=== PATIENT | male | born 1955 | race Caucasian/White ===

== ENCOUNTER 2025-05-08 17:05 | Emergency (ER) | payer MEDICARE, OTHER, SELFPAY ==
[2025-05-08 17:15] VITALS: BP 171/83
[2025-05-08 17:48] LABS: Hematocrit 40.2 % (39.0-52.0); Hemoglobin 13.7 g/dL (13.0-18.0); Mean Corp Hgb Conc. 34.1 g/dL (33.0-37.0); Mean Corpuscular Volume 84.6 fL (80.0-94.0); Nucleated Red Blood Cells % 0 % (-); Platelet Count 157 10^3/uL (130-400); Red Cell Dist. Width 13.2 % (11.5-14.5)
[2025-05-08 18:10] LABS: Troponin I < 0.012 ng/ml
[2025-05-08 18:13] LABS: ALT (SGPT) 31 U/L (0-50); AST (SGOT) 31 U/L (17-59); Albumin 4.3 g/dl (3.5-5.0); Alkaline Phosphatase 86 U/L (38-126); Blood Urea Nitrogen 24 mg/dl (9-20); Calcium 9.0 mg/dl (8.4-10.2); Carbon Dioxide 28 mmol/L (22-30); Chloride 105 mmol/L (98-107); Glucose 88 mg/dl (70-99); Potassium 4.3 mmol/L (3.5-5.1); Sodium 139 mmol/L (135-145); Total Protein 6.6 g/dl (6.3-8.2); eGFR > 60.00
[2025-05-08 21:41] VITALS: BMI 26.4
--- NOTE | 2025-05-08 21:52 | ED.GENMED ---
History of Present Illness
<Desiree Pennington MD - Last Filed: 05/08/25 22:42>
General
Chief Complaint: Breathing Problem
Source: patient
Time Seen by Provider: 05/08/25 21:41
History of Present Illness
History of Present Illness:
This patient is a 69-year-old male who presents emergency department with complaints of dyspnea. He says that in the past he will get 'slightly winded' with exercise. He has had stress test done in response to this all of which have been
unremarkable. However, he notes recently that he has been developing very short-lived episodes of dyspnea now at rest, lasting seconds at a time and then spontaneously resolving. Patient states that he did a workout on Friday and felt fine. Of
note, patient returned from a trip to [facility] approximately 1 week ago. He denies headache, dizziness, leg swelling, nausea, vomit, fever, chills, cough, sore throat, rhinorrhea, chest pain or pressure, back pain, neck pain, jaw pain, or other
plaints.
Past History
<Desiree Pennington MD - Last Filed: 05/08/25 22:42>
Past History
ED Past Medical History: CAD, HTN, Hypercholesterolemia and Other (DVT)
ED Past Surgical History: Cardiac (2 cardiac stents), Orthopedic (Right hip replacement) and Other (Dental surgeries)
Social History
Tobacco: Non-smoker
Alcohol: Occasional
Drug: None
Personal:
Living: with family
Phy Exam
<Desiree Pennington MD - Last Filed: 05/08/25 22:42>
Physical Exam
Physical Exam:
GENERAL: Alert , in no apparent distress
EYE: pupils equal and reactive
NECK: Supple, no significant adenopathy.
ENT: o/p clr, mmm.
CARDIAC: Regular rate and rhythm .
LUNGS: Clear breath sounds bilaterally, no acute respiratory distress, no wheezes/rales/rhonchi
ABDOMEN: Soft, without focal tenderness, no r/g, no cvat
NEUROLOGICAL: Alert and oriented, no focal neuro deficits
SKIN: Warm and dry, skin intact.
MUSCULOSKELETAL: No edema, well perfused.
PSYCH: Normal and appropriate interaction.
Scores
<Cherry Buck DO - Last Filed: 05/09/25 01:17>
Heart Failure Risk
Heart Failure Risk Score: Yes
History of Stroke or TIA: No
History of intubation for respiratory distress: No
Heart rate on ED arrival >/= 110: No
SaO2 <90% on arrival on room air: No
HR >/=110 during 3min walk test (or too ill to perform test): No
ECG has acute ischemic changes: No
Urea >/=12mmol/L (BUN 33.6mg/dL): No
Serum CO2>/=35mmol/L: No
Troponin I or T elevated to [place] Level (0.4mg/dL): No
NT-proBNP >/=5,000ng/L (5,000pg/ml): No
HF Risk Score: 0
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
Course
<Desiree Pennington MD - Last Filed: 05/08/25 22:42>
Orders/Labs/Results
Orders:
Orders
05/08/25 17:19
Electrocardiogram (*1) Urgent
Reason for Study: Shortness of Breath
05/08/25 17:20
EKG- Treatment ONCE
05/08/25 17:42
Complete Blood Count/With Diff Urgent
Comprehensive Metabolic Panel Urgent
Pro-BNP [NT-proBNP] Urgent
Troponin I Urgent
05/08/25 21:51
CT Chest PE Study Urgent
Comment:
Reason For Exam: sob, hx dvt
05/08/25 21:58
Troponin I Urgent
Abnormal Lab Results
05/08/25
17:42
WBC 4.7 L 10^3/uL
(4.8-10.8)
Absolute Lymphs (auto) 1.1 L 10^3/uL
(1.2-3.4)
Monocytes % 12.2 H %
(1.7-9.3)
BUN 24 H mg/dl
(9-20)
Total Bilirubin 1.4 H mg/dl
(0.2-1.3)
05/08/25 17:42
05/08/25 17:42
Vital Signs
Initial and Last Documented VS:
Initial Vital Signs
Temp Pulse Resp BP Pulse Ox
97.6 F 48 20 171/83 100
05/08/25 17:15 05/08/25 17:15 05/08/25 17:15 05/08/25 17:15 05/08/25 17:15
Last Documented Vital Signs
Temp Pulse Resp BP Pulse Ox
97.6 F 47 15 136/78 96
05/08/25 17:15 05/09/25 00:30 05/09/25 00:30 05/09/25 00:00 05/09/25 00:30
<Cherry Buck, DO - Last Filed: 05/09/25 01:17>
Orders/Labs/Results
Orders:
Orders
05/08/25 17:19
Electrocardiogram (*1) Urgent
Reason for Study: Shortness of Breath
05/08/25 17:20
EKG- Treatment ONCE
05/08/25 17:42
Complete Blood Count/With Diff Urgent
Comprehensive Metabolic Panel Urgent
Pro-BNP [NT-proBNP] Urgent
Troponin I Urgent
05/08/25 21:51
CT Chest PE Study Urgent
Comment:
Reason For Exam: sob, hx dvt
05/08/25 21:58
Troponin I Urgent
Abnormal Lab Results
05/08/25
17:42
WBC 4.7 L 10^3/uL
(4.8-10.8)
Absolute Lymphs (auto) 1.1 L 10^3/uL
(1.2-3.4)
Monocytes % 12.2 H %
(1.7-9.3)
BUN 24 H mg/dl
(9-20)
Total Bilirubin 1.4 H mg/dl
(0.2-1.3)
05/08/25 17:42
05/08/25 17:42
Vital Signs
Initial and Last Documented VS:
Initial Vital Signs
Temp Pulse Resp BP Pulse Ox
97.6 F 48 20 171/83 100
05/08/25 17:15 05/08/25 17:15 05/08/25 17:15 05/08/25 17:15 05/08/25 17:15
Last Documented Vital Signs
Temp Pulse Resp BP Pulse Ox
97.6 F 47 15 136/78 96
05/08/25 17:15 05/09/25 00:30 05/09/25 00:30 05/09/25 00:00 05/09/25 00:30
<Desiree Pennington MD - Last Filed: 05/08/25 22:42>
*Pulse Oximetry
SaO2: 100
Oxygen Mode of Delivery: Room air
<Cherry Buck DO - Last Filed: 05/09/25 01:17>
*Radiology
Radiology exam reviewed: radiology read reviewed
*Pulse Oximetry
Patient hypoxic: no
*Critical Care Note
Total Time (30-74mins, 75-104mins- exclusive of procedures): Not Applicable
<Desiree Pennington MD - Last Filed: 05/08/25 22:42>
Update Note
Update Note:
Patient presents to the Emergency Department with ___dyspnea
Number and Complexity of Problems Addressed at the Encounter
� Chronic conditions affecting care:
� Acute Exacerbation and/or Progression of Chronic Illness:
� Differential Diagnosis includes: But not limited to ACS, PE, pneumothorax, pneumonia, pericarditis, etc. etc.
Amount and/or Complexity of Data to be Reviewed and Analyzed
� I performed an independent evaluation of and my interpretation is:
EKG: Read by me, sinus bradycardia, no acute ischemia
CT:
Xrays:
Laboratory Studies: Generally unremarkable, repeat troponin pending
Other:
� Review of other/old records reveals:
� Clinical information was obtained by an independent historian:
� Prescriptions/Medications Considered but not given:
� Further testing considered but not performed:
Risk of Complications and/or Morbidity or Mortality of Patient Management
� Social determinants of health affecting care:
� Discussion with other providers (PCP, Hospitalists, Consultants, etc):
� Escalation of care including admission/observation vs risk of discharge considered: CAT scan pending. Patient remains extremely well-appearing, vital signs normal, no distress. Low clinical suspicion for ACS given ECG and
troponin negative x 2. Disposition pending CAT scan if unremarkable stable for discharge and close follow-up.
<Cherry Buck DO - Last Filed: 05/09/25 01:17>
Update Note
Update Note:
Patient presents to the Emergency Department with ___dyspnea
Number and Complexity of Problems Addressed at the Encounter
� Chronic conditions affecting care:
� Acute Exacerbation and/or Progression of Chronic Illness:
� Differential Diagnosis includes: But not limited to ACS, PE, pneumothorax, pneumonia, pericarditis, etc. etc.
Amount and/or Complexity of Data to be Reviewed and Analyzed
� I performed an independent evaluation of and my interpretation is:
EKG: Read by me, sinus bradycardia, no acute ischemia
CT:
Xrays:
Laboratory Studies: Generally unremarkable, repeat troponin pending
Other:
� Review of other/old records reveals:
� Clinical information was obtained by an independent historian:
� Prescriptions/Medications Considered but not given:
� Further testing considered but not performed:
Risk of Complications and/or Morbidity or Mortality of Patient Management
� Social determinants of health affecting care:
� Discussion with other providers (PCP, Hospitalists, Consultants, etc):
� Escalation of care including admission/observation vs risk of discharge considered: CAT scan pending. Patient remains extremely well-appearing, vital signs normal, no distress. Low clinical suspicion for ACS given ECG and
troponin negative x 2. Disposition pending CAT scan if unremarkable stable for discharge and close follow-up.
01:15
CT/PE study shows no evidence of PE. Clear lung reed.
Patient remains asymptomatic.
Will discharge to home with recommendations for follow-up with PCP.
ED Attending Note
<Desiree Pennington MD - Last Filed: 05/08/25 22:42>
-
Portions of this chart may have been created with voice recognition software.� Occasional wrong word or��sound alike� substitutions may have occurred due to the inherent limitations of voice recognition software.
Discharge Plan
Departure
Patient Disposition: Home (Routine Discharge)
Date of Disposition: 05/09/25
Time of Disposition: 01:13
Patient with high blood pressure during this ER visit?: Yes
Condition: Good
Discharge Problem:
Dyspnea
Instructions: Shortness of breath, BLOOD PRESSURE
Referrals:
Christine Holly DO [Family Provider, Internal Medicine]
Activity Restrictions/Additional Instructions:
PLEASE FOLLOW-UP WITH YOUR EDGE BEADER THIS WEEK. IF YOU DEVELOP RECURRENT OR PERSISTENT SHORTNESS OF BREATH, ANY CHEST PAIN OR PRESSURE, FEVER, VOMITING, LEG SWELLING, DIZZINESS, OR OTHER WORRISOME SIGNS, PLEASE RETURN TO THE ER IMMEDIATELY!
Interventions
Interventions:
*General Assessment Last Done: 05/08/25 17:15
*Neglect/Abuse Screening Last Done: 05/08/25 17:15
*ED COVID-19 Vaccine History Last Done: 05/08/25 21:40
*ED Influenza Vaccine History Last Done: 05/08/25 21:40
[facility] Fall Risk Assessment Tool Last Done: 05/08/25 21:42
*Risk Screen - Suicide (C-SSRS) Last Done: 05/08/25 17:15
ED- Cardiac Assessment Last Done: 05/08/25 21:42
ED- Pulmonary Assessment Last Done: 05/08/25 21:42
Discharge Date and Time
Print Language: ROMANSH
[2025-05-08 21:58] VITALS: BP 153/78
[2025-05-08 22:00] VITALS: BP 164/79
[2025-05-08 22:29] LABS: Troponin I < 0.012 ng/ml
[2025-05-08 23:05] VITALS: BP 153/79
[2025-05-09] VITALS: BP 136/78
[2025-05-09 01:00] VITALS: BP 134/68
== END 2025-05-09 01:32 | disposition home or self-care (01) ==
LOC: EMR 17:05
PROVIDERS: Emergency Medicine; EMERGENCY PHYSICIAN Emergency Medicine; FAMILY PHYSICIAN Internal Medicine
DX: R06.00 Dyspnea, unspecified (principal); I10 Essential (primary) hypertension; I25.10 Atherosclerotic heart disease of native coronary artery without angina pectoris; E78.00 Pure hypercholesterolemia, unspecified; Z95.5 Presence of coronary angioplasty implant and graft; Z86.718 Personal history of other venous thrombosis and embolism; Z96.641 Presence of right artificial hip joint
CPT/HCPCS: 99284; 71275; 80053; 83880; 84484; 85025; 93005; Q9967